=== PATIENT | male | born 1950 | race Caucasian/White ===

== ENCOUNTER 2016-05-10 10:16 | Emergency (ER) | payer OTHER ==
[~2016-05-10] VITALS: Ht 170.2 cm; Wt 89.4 kg
[2016-05-10 10:28] VITALS: BP 184/90
--- NOTE | 2016-05-10 10:33 | NUR ---
Patient to bed 08.
--- NOTE | 2016-05-10 10:34 | NUR ---
65/M BIB SELF C/O HEAD CONGESTION X 1 DAY. PT STATES HE FEELS PRESSURE IN HIS HEAD AND NOSE SINCE LAST NOC. HX HTN AND HYPERLIPIDEMIA.PT DENIES N/V/D; SKIN IS PINK/WARM/DRY; AAOX4 WITH EVEN AND STEADY GAIT; LUNGS CLEAR BL; HR EVEN AND REGULAR; PT DENIES ANY FEVER, CP, SOB, OR COUGH AT THIS TIME; PATIENT STATES PAIN OF 0/10 AT THIS TIME; PATIENT POSITIONED FOR COMFORT; HOB ELEVATED; BEDRAILS UP X2; BED DOWN. ER MD MADE AWARE OF PT STATUS.
--- NOTE | 2016-05-10 10:40 | NUR ---
Patient appears to be resting comfortably in bed. Respirations even and unlabored. WILL CONTINUE TO MONITOR
--- NOTE | 2016-05-10 11:24 | NUR ---
Dr. Cardona evaluating patient at bedside.
--- NOTE | 2016-05-10 11:34 | NUR ---
LAB AT BEDSIDE
--- NOTE | 2016-05-10 11:40 | NUR ---
PT TAKEN TO CT VIA W/C ACCOMPANIED BY GARMENT INSPECTOR
--- NOTE | 2016-05-10 11:40 | NUR ---
[facility]
--- NOTE | 2016-05-10 11:52 | NUR ---
Patient back from CT via wheelchair per tech.
[2016-05-10 12:40] VITALS: BP 141/87
--- NOTE | 2016-05-10 12:40 | NUR ---
Patient discharged with CONDTION stable AT THIS TIME. Written and verbal after care instructions given and explained. Patient verbalized understanding. Ambulatory with steady gait. All questions addressed prior to discharge. Advised to follow up with PMD.
== END 2016-05-10 12:40 | disposition home or self-care (01) ==
LOC: MED 10:16
DX: R20.0 Anesthesia of skin (principal); I10 Essential (primary) hypertension; E78.5 Hyperlipidemia, unspecified; Z90.89 Acquired absence of other organs